=== PATIENT | female | born 1945 | race Caucasian/White ===

== ENCOUNTER 2017-06-29 16:10 | Observation (INO) ==
--- NOTE | 2017-06-29 16:32 | Emergency Department Note ---
Disposition Clinical Impression: Stroke Qualifiers: CVA mechanism: unspecified Qualified Code(s): I63.9 - Cerebral infarction, unspecified Diabetes Qualifiers: Diabetes mellitus type: type 2 Diabetes mellitus bed bug exterminator insulin use: without bed bug exterminator use Diabetes mellitus complication status: with hyperglycemia Qualified Code(s): E11.65 - Type 2 diabetes mellitus with hyperglycemia Disposition: Admitted As Inpatient Condition: Good General Adult HPI - General Chief complaint: ED Neuro Symptoms/Deficit Stated complaint: Neuro Symptoms - Related Data Home Medications Medication Instructions Recorded Confirmed Cholecalciferol (D-3) [Vitamin D] 1,000 unit PO DAILY 06/29/17 06/29/17 Lisinopril-HCTZ 20-12.5 [Prinzide 0.5 tab PO DAILY 06/29/17 06/29/17 20-12.5] Metoprolol [Lopressor] 25 mg PO BID 06/29/17 06/29/17 glipiZIDE [Glipizide] 10 mg PO DAILY 06/29/17 06/29/17 Previous Rx's Medication Instructions Recorded Atorvastatin [Lipitor] 40 mg PO HS #30 tablet 06/30/17 Clopidogrel Bisulfate [Plavix] 75 mg PO DAILY #30 tablet 06/30/17 Allergies Allergy/AdvReac Type Severity Reaction Status Date / Time No Known Allergies Allergy Verified 06/29/17 16:46 Course Vital Signs Temperature 98.4 F 06/29/17 16:32 Pulse Rate 75 06/29/17 16:32 Respiratory Rate 15 06/29/17 16:32 Blood Pressure 144/94 06/29/17 16:32 O2 Sat by Pulse Oximetry 98 06/29/17 16:32 Temperature 97.9 F 06/30/17 15:00 Pulse Rate 76 06/30/17 15:25 Respiratory Rate 16 06/30/17 15:25 Blood Pressure 139/76 06/30/17 15:25 O2 Sat by Pulse Oximetry 94 06/30/17 15:00 Oxygen Delivery Oxygen Delivery Room Air Medical Decision Making - Lab Data Result diagrams: 06/29/17 16:25 06/29/17 16:25 Lab Results 06/29/17 06/29/17 Range/Units 16:25 16:25 WBC 7.4 (4.3-11.1) K/mcL RBC 4.65 (3.82-4.97) M/mcL Hgb 13.9 (11.5-15.4) g/dL Hct 41.3 (35.3-44.9) % MCV 88.8 (83.0-100.0) fL MCH 29.9 (28.0-33.3) pg MCHC 33.7 (31.6-35.5) g/dL RDW 12.9 (11.5-14.5) % Plt Count 255 (140-400) K/mcL MPV 10.6 (9.4-12.4) fL Immature Gran % 0.3 (0-4) % Seg Neutrophils % 57.6 % Lymphocytes % 30.1 % Monocytes % 7.3 % Eosinophils % 3.8 % Basophils % 0.9 % Neutrophils # 4.3 (1.6-8.9) K/mcL Lymphocytes # 2.2 (0.6-4.6) K/mcL Monocytes # 0.5 (0.0-1.3) K/mcL Eosinophils # 0.3 (0.0-0.6) K/mcL Basophils # 0.1 (0.0-0.2) K/mcL Sodium 134 L (136-145) mEq/L Potassium 4.0 (3.5-5.1) mEq/L Chloride 97 L (98-107) mEq/L Carbon Dioxide 28 (23-29) mEq/L BUN 17 (8-23) mg/dL Creatinine 0.80 (0.60-1.20) mg/dL Est GFR ( Amer) > 60 (> 60) Est GFR (Non-Af Amer) > 60 (> 60) BUN/Creatinine Ratio 21 (6-26) Glucose 290 H (70-105) mg/dL Calculated Osmolality 290 (280-300) Calcium 9.4 (8.6-10.3) mg/dL Troponin I < 0.03 (< 0.04) ng/mL Attestation Statement - Attestation Attestation: I examined this patient and my medical decision-making was reviewed with the MACHINE CLOTH EXAMINER/PA/Advanced Practice Nurse/Resident Physician. I agree with the documented findings, disposition and treatment plan as described except to the extent set forth below. I did see the patient immediately upon arrival to her room and also spoke with the daughter and the patient was fine this morning when she got home at noon started to have symptoms and difficult time expressing herself which continued to worsen and also worsened when she was having lunch with her friend. She did drive to the lunch. She did see her primary care physician who found a irregular heart rate and sent her to the emergency department. She is not a thrombolytic candidate based on prolonged duration of symptoms, she denies any numbness or weakness of extremities, facial droop or confusion. She does not have specific slurred speech but has difficult time finding words and speaking and this is confirmed by the daughter. No history of strokes. Social history: Non smoker 1631 I did review the records from Dr. tamayo that were sent over with the patient as well as the EKG which does show a sinus rhythm and not atrial fibrillation. Patient's symptoms most consistent with stroke and will be admitted to the hospital. CT scan is pending. [address] reviewed. Pt to b admitted. I did review the EKG showing normal sinus rhythm with rate of 75 without acute ischemic change. There is one PVC. 174
[2017-06-29 16:57] LABS: Basophils # 0.1 K/mcL (0.0-0.2); Basophils % 0.9 %; Eosinophils # 0.3 K/mcL (0.0-0.6); Eosinophils % 3.8 %; Hematocrit 41.3 % (35.3-44.9); Hemoglobin 13.9 g/dL (11.5-15.4); Immature Granulocytes % 0.3 % (0-4); Lymphocytes # 2.2 K/mcL (0.6-4.6); Lymphocytes % 30.1 %; Mean Corpuscular HGB Conc 33.7 g/dL (31.6-35.5); Mean Corpuscular Hemoglobin 29.9 pg (28.0-33.3); Mean Corpuscular Volume 88.8 fL (83.0-100.0); Mean Platelet Volume 10.6 fL (9.4-12.4); Monocytes # 0.5 K/mcL (0.0-1.3); Monocytes % 7.3 %; Neutrophils # 4.3 K/mcL (1.6-8.9); Platelet Count 255 K/mcL (140-400); Red Blood Count 4.65 M/mcL (3.82-4.97); Red Cell Distribution Width 12.9 % (11.5-14.5); Segmented Neutrophils % 57.6 %
[2017-06-29 17:17] LABS: Troponin I < 0.03 ng/mL (< 0.04)
[2017-06-29 17:19] LABS: BUN/Creatinine Ratio 21 (6-26); Blood Urea Nitrogen 17 mg/dL (8-23); Calcium 9.4 mg/dL (8.6-10.3); Carbon Dioxide 28 mEq/L (23-29); Chloride 97 mEq/L (98-107); Glucose 290 mg/dL (70-105); Osmolality,Calculated 290 (280-300); Sodium 134 mEq/L (136-145); eGFR For African Americans > 60 (> 60); eGFR For Non-African Americans > 60 (> 60)
--- NOTE | 2017-06-29 17:27 | Emergency Department Note ---
Disposition Clinical Impression: Stroke Qualifiers: CVA mechanism: unspecified Qualified Code(s): I63.9 - Cerebral infarction, unspecified Diabetes Qualifiers: Diabetes mellitus type: type 2 Diabetes mellitus manager terminal insulin use: without manager terminal use Diabetes mellitus complication status: with unspecified complications Qualified Code(s): E11.8 - Type 2 diabetes mellitus with unspecified complications Disposition: Admitted As Inpatient Condition: Fair Time of Disposition: 18:21 General Adult HPI - General Chief complaint: ED Altered Mental Status Stated complaint: Neuro Symptoms Time Seen by Provider: 06/29/17 17:24 Source: patient, family Mode of arrival: ambulatory Limitations: no limitations Nursing Notes Reviewed: Yes Vital Signs Reviewed: Yes - History of Present Illness HPI Narrative: Patient is a 71-year-old female with a past medical history of hypertension, diabetes, high cholesterol and history of smoking presents to the emergency department for the complaint of difficulty with articulating words. The patient states that her symptoms started at noon today approximately 5-1/2 hours ago. She states that she was helping a friend to the doctor's office when she was having difficulty with saying her thoughts. She states that she is unable to articulate with speech or come up with the words to explain what she was thinking at that time. Shortly afterwards the patient came to the emergency department. She denies any headache, vision changes, hearing changes , focal neurological deficits such as weaknesses, loss of sensation or any other associated symptoms. She states that her symptoms have improved since then however she still has a mild difficulty with articulating what she is trying to say. Pain Scale: 0 - Related Data Home Medications Medication Instructions Recorded Confirmed Aspirin Enteric Coated [Aspirin EC] 81 mg PO DAILY 06/29/17 06/29/17 Cholecalciferol (D-3) [Vitamin D] 1,000 unit PO DAILY 06/29/17 06/29/17 Lisinopril-HCTZ 20-12.5 [Prinzide 0.5 tab PO DAILY 06/29/17 06/29/17 20-12.5] Meloxicam [Mobic] 15 mg PO DAILY PRN 06/29/17 06/29/17 Metoprolol [Lopressor] 25 mg PO BID 06/29/17 06/29/17 Pioglitazone HCl [Actos] 30 mg PO DAILY 06/29/17 06/29/17 glipiZIDE [Glipizide] 10 mg PO DAILY 06/29/17 06/29/17 Allergies Allergy/AdvReac Type Severity Reaction Status Date / Time No Known Allergies Allergy Verified 06/29/17 16:46 All systems ED: reviewed and negative except as stated. Review of Systems: As Per HPI Constitutional: Denies: fever, chills ENT ED: Denies: congestion Cardiovascular: Denies: chest pain, palpitations Respiratory: Denies: cough, dyspnea, wheezes Gastrointestinal: Denies: abdominal pain, nausea, vomiting Genitourinary: Denies: urgency, dysuria Musculoskeletal: Denies: back pain, neck pain Neurological: Reports: other (difficulty articulating thoughts. Denies facial droop or slurring of words. ). Denies: headache, weakness, numbness, paresthesias, confusion, abnormal gait, vertigo Past Medical History - Past Medical History Attestation: Yes The following information was validated with the patient. Medical history: Reports: arthritis, cancer, diabetes, hypertension Psychiatric history: Reports: no psych history - Social History Smoking Status: Never smoker Smokeless Tobacco Status: No Alcohol use: Reports: none Drug use: Reports: none Physical Exam CONSTITUTIONAL: Alert and oriented X3, well-nourished, well appearing, in no apparent distress. On exam the patient at times has difficulty providing a history and has to slow down and has increased thinking about the words that she needs to use. HEAD: Normocephalic; atraumatic. EYES: PERRL, no scleral icterus. NOSE: The nose is normal in appearance without rhinorrhea RESP: Normal chest excursion with respiration; breath sounds clear and equal bilaterally; no wheezes, rhonchi, or rales CARD: Regular rhythm, without murmurs, rub or gallop ABD: Non-distended; non-tender, soft,without rigidity, rebound or guarding SKIN: Normal for age and race; warm and dry; no apparent lesions NEUROLOGICAL: Patient is alert and oriented times three. Cranial nerves III- XII are intact. Sensory and motor functions are intact. Strength is 5/5 for flexion and extension in all 4 extremities. Patellar DTRS are equal and intact. Finger to nose testing is equal and normal bilaterally. - General General appearance: alert Course Course Narrative: Patient has an NIH SS score of 1. Plan at this time is to order basic lab work as well as a head CT the patient will be admitted most likely for TIA given her presentation. On admitting the patient will undergo further workup and evaluation of her symptoms. Patient is not a tPA candidate at this time given the duration of her symptoms as well as the low acuity of her stroke scale score and continuing improvement. - Reevaluation(s) Reevaluation #1: The patient continues to remain stable at this time. Her lab work was unremarkable except for an elevated blood glucose in 230's. The patient's head CT showed no acute intracranial abnormality. The patient's symptoms appear to be improving back to her baseline. I discussed with the patient the plan to admit her to the hospital for further workup of a possible stroke/TIA. The patient agrees with this plan. I discussed the patient's case with hospitalist on-call Dr. Shah and she agrees to accept the patient. Time: 18:21 Vital Signs Temperature 98.4 F 06/29/17 16:32 Pulse Rate 75 06/29/17 16:32 Respiratory Rate 15 06/29/17 16:32 Blood Pressure 144/94 06/29/17 16:32 O2 Sat by Pulse Oximetry 98 06/29/17 16:32 Temperature 98.4 F 06/29/17 17:05 Pulse Rate 74 06/29/17 20:57 Respiratory Rate 16 06/29/17 20:57 Blood Pressure 115/89 06/29/17 20:57 O2 Sat by Pulse Oximetry 97 06/29/17 20:57 Oxygen Delivery Oxygen Delivery Room Air Medical Decision Making - Medical Records Medical records reviewed: Yes I reviewed the patient's medical records. - Lab Data Lab results reviewed: Yes I reviewed the patient's lab results. Result diagrams: 06/29/17 16:25 06/29/17 16:25 Lab Results 06/29/17 06/29/17 Range/Units 16:25 16:25 WBC 7.4 (4.3-11.1) K/mcL RBC 4.65 (3.82-4.97) M/mcL Hgb 13.9 (11.5-15.4) g/dL Hct 41.3 (35.3-44.9) % MCV 88.8 (83.0-100.0) fL MCH 29.9 (28.0-33.3) pg MCHC 33.7 (31.6-35.5) g/dL RDW 12.9 (11.5-14.5) % Plt Count 255 (140-400) K/mcL MPV 10.6 (9.4-12.4) fL Immature Gran % 0.3 (0-4) % Seg Neutrophils % 57.6 % Lymphocytes % 30.1 % Monocytes % 7.3 % Eosinophils % 3.8 % Basophils % 0.9 % Neutrophils # 4.3 (1.6-8.9) K/mcL Lymphocytes # 2.2 (0.6-4.6) K/mcL Monocytes # 0.5 (0.0-1.3) K/mcL Eosinophils # 0.3 (0.0-0.6) K/mcL Basophils # 0.1 (0.0-0.2) K/mcL Sodium 134 L (136-145) mEq/L Potassium 4.0 (3.5-5.1) mEq/L Chloride 97 L (98-107) mEq/L Carbon Dioxide 28 (23-29) mEq/L BUN 17 (8-23) mg/dL Creatinine 0.80 (0.60-1.20) mg/dL Est GFR ( Amer) > 60 (> 60) Est GFR (Non-Af Amer) > 60 (> 60) BUN/Creatinine Ratio 21 (6-26) Glucose 290 H (70-105) mg/dL Calculated Osmolality 290 (280-300) Calcium 9.4 (8.6-10.3) mg/dL Troponin I < 0.03 (< 0.04) ng/mL - Radiology Data Radiology results reviewed: Yes I reviewed the patient's radiology results. Head CT 06/29/17 16:32 IMPRESSION: No acute intracranial abnormality. Moderate periventricular and subcortical white matter low attenuation likely represents sequela of chronic small vessel ischemic disease. D/ / 06/29/2017 17:20:04 Barry Wells MD / [facility] Interpreting Provider: Barry Wells MD - EKG Data EKG #1 EKG attestation: Yes I reviewed and interpreted this EKG. EKG results narrative: EKG done at 16:54 shows sinus rhythm at a rate of 75 bpm. Normal axis. [place] is 198, QRS is 70, QT is 360 and QTc is 397 and these are within normal limits. No signs of ST elevation, ST depression or Q waves present at this time. No signs of ischemia and I have no old EKG for comparison. NIH Stroke Scale - Level of Consciousness LOC: Alert - LOC Questions LOC Questions: Answers both correctly - LOC Commands LOC Commands: Performs both correctly - Best Gaze Best Gaze: Normal - Visual Visual: No visual loss - Facial Palsy Facial Palsy: Normal - Motor Arms Motor Arm-Left: No drift for 10 seconds Motor Arm-Right: No drift for 10 seconds - Motor Legs Motor Leg-Left: No drift for 5 seconds Motor Leg-Right: No drift for 5 seconds - Limb Ataxia Limb Ataxia: Normal, No Ataxia - Sensory Sensory: Normal - Best Language Best Language: Mild to moderate aphasia. Examiner can identify picture from response - Dysarthria Dysarthria: Normal - Extinction and Inattention Extinction and Inattention: Normal - NIHSS Total Score NIHSS Total Score: 1
[2017-06-29] MEDS ORDERED: Naloxone 0.4 MG/ML INJ IVP PRN (19:25)
[2017-06-29] MEDS ORDERED: *HR* HYDROcodone/Acet 5/325 mg TABLET PO PRN (19:26)
[2017-06-29] MEDS ORDERED: *HR* Promethazine 25 MG/ML VIAL IVP PRN (19:26)
[2017-06-29] MEDS ORDERED: Acetaminophen 325 MG TABLET PO PRN (19:26)
[2017-06-29] MEDS ORDERED: Ondansetron 4 MG/2 ML VIAL IVP PRN (19:26)
--- NOTE | 2017-06-29 21:24 | Internal Med History&Physical ---
Date of Encounter: 06/29/17 Time of Encounter: 20:00 Internal Medicine - H&P: HPI Chief complaint: Slurred speech and dysarthria Admitted From: Emergency Dept Plans for Post Hospital Care: Home History of present illness: Ms. Arias is a 71 year old female with a past medical history of hypertension , diabetes, high cholesterol and history of smoking presented to the emergency department for the complaint of difficulty with articulating words and slurred speech. The patient states that her symptoms started at noon today. She states that she is unable to articulate with speech or come up with the words to explain what she was thinking at that time. Also noticed some slurred speech. She denies any headache, vision changes, hearing changes, focal neurological deficits such as weaknesses, loss of sensation or any other associated symptoms. She states that her symptoms have improved by the time she presented to ER. She denied any speech problems now. Past Med Surg Social Fam HX - Past Medical History Medical history: arthritis, cancer, diabetes, hypertension Psychiatric history: no psych history - Past Surgical History Surgical History: no surgical history - Social History Smoking Status: Never smoker Smokeless Tobacco Status: No Alcohol use: none Drug use: none - Additional Family History Additional family history: Family hsitory reviewed and non contribuitory to current problem. Internal Medicine - H&P: Meds Aspirin Enteric Coated [Aspirin EC] 81 mg PO DAILY 06/29/17 [History] Cholecalciferol (D-3) [Vitamin D] 1,000 unit PO DAILY 06/29/17 [History] Lisinopril-HCTZ 20-12.5 [Prinzide 20-12.5] 0.5 tab PO DAILY 06/29/17 [History] Meloxicam [Mobic] 15 mg PO DAILY PRN 06/29/17 [History] Metoprolol [Lopressor] 25 mg PO BID 06/29/17 [History] Pioglitazone HCl [Actos] 30 mg PO DAILY 06/29/17 [History] glipiZIDE [Glipizide] 10 mg PO DAILY 06/29/17 [History] 3 Allergy/AdvReac Type Severity Reaction Status Date / Time No Known Allergies Allergy Verified 06/29/17 16:46 All Systems PM: A 10-system review of systems was performed and is negative for pertinent findings except as documented above in the HPI. Review of systems: All the systems are reviewed everything is benign except the systems and symptoms I mentioned in the history of present illness - Constitutional Vitals: Temp Pulse Resp BP Pulse Ox 98.4 F 74 16 115/89 97 06/29/17 17:05 06/29/17 20:57 06/29/17 20:57 06/29/17 20:57 06/29/17 20:57 General appearance: Present: cooperative, A&O X 3, no acute distress, answers questions appropriately - Head Head exam: Present: atraumatic, normal inspection - Respiratory Respiratory exam: Present: decreased breath sounds. Absent: rales, respiratory distress, rhonchi, wheezes - Cardiovascular Cardiovascular exam: Present: RRR, +S1, +S2. Absent: tachycardia - GI/Abdominal GI/Abdominal exam: Present: normal bowel sounds, soft. Absent: rebound, rigid, tenderness - Extremities Exam Extremities exam: Absent: calf tenderness, pedal edema, tenderness - Back Exam Back exam: Absent: CVA tenderness (L), CVA tenderness (R) - Neurological Exam Neurological exam: Present: alert, CN II-XII intact, oriented X3, no focal deficits, strengths equal and symetr throughout. Absent: pronater drift, facial droop, speech deficit - Psychiatric Psychiatric exam: Present: normal affect, normal mood - Skin Skin exam: Absent: rash Internal Med - H&P Results - Labs CBC & Chem 7: 06/29/17 16:25 06/29/17 16:25 - Assessment and plan (1) Dysarthria Current Visit: Yes Status: Acute Assessment and plan: Place the pt into Tele for observation Reviewed CT of head - no acute ICH / No acute intra cranial pathology noticed cont on court monitor EKG - showed NSR Will check FLP in AM check MRI of brain, 2 D Echo and Carotid doppler in AM not a candidate for tPA since symptoms improved does look more like TIA neuro checks Q4hr Cont ASA 81 mg for now check FLP In AM (2) TIA (transient ischemic attack) Current Visit: Yes Status: Acute Qualifiers: Qualified Code(s): G45.9 - Transient cerebral ischemic attack, unspecified (3) HTN (hypertension) Current Visit: Yes Status: Acute Assessment and plan: stable with current meds resumed home meds Qualifiers: Hypertension type: essential hypertension Qualified Code(s): I10 - Essential (primary) hypertension (4) HLD (hyperlipidemia) Current Visit: Yes Status: Acute Assessment and plan: check FLP in AM Qualifiers: Hyperlipidemia type: unspecified Qualified Code(s): E78.5 - Hyperlipidemia , unspecified (5) Diabetes Current Visit: Yes Status: Acute Assessment and plan: Held PO meds for now check HbA1C in AM placed her on ISS at low Qualifiers: Diabetes mellitus type: type 2 Diabetes mellitus senior living insulin use: without director call center sales use Diabetes mellitus complication status: with unspecified complications Qualified Code(s): E11.8 - Type 2 diabetes mellitus with unspecified complications - Time Spent With Patient Total time spent is greater than 50% in coordination of care (as documented) at patient's floor/unit and/or counseling patient:
[2017-06-29] MEDS ORDERED: Dextrose Gel 15 GM/37.5 ML TUBE PO PRN ×2 (21:56)
[2017-06-29] MEDS ORDERED: *HR* Dextrose 50 % in Water (Syg) 50 ML SYRINGE IVP PRN (21:56)
[2017-06-29] MEDS ORDERED: D5% in Water 1,000 ML IVC PRN (21:56)
[2017-06-30 06:31] LABS: Chol/HDL Ratio 8.3 (0-4.9); Cholesterol 289 mg/dL (< 200); HDL Cholesterol 35 mg/dL (40-59); Triglycerides 433 mg/dL (< 150)
[2017-06-30 08:35] LABS: Estimated Average Glucose 223 mg/dl; Hemoglobin A1C 9.4 %
[2017-06-30] MEDS: Insulin LISPRO 300 UNITS/3 ML VIAL SQ SCH ×3 (08:56→16:18)
[2017-06-30] MEDS ORDERED: Lisinopril-HCTZ 20-12.5mg TABLET PO SCH (09:00)
[2017-06-30] MEDS ORDERED: Cholecalciferol (D-3) 1,000 UNIT TABLET PO SCH (09:00)
[2017-06-30] MEDS ORDERED: Aspirin Enteric Coated 81 MG Tablet PO SCH (09:00)
[2017-06-30] MEDS ORDERED: *HR* Heparin 5,000 UNIT/ML VIAL SQ SCH (10:00)
--- NOTE | 2017-06-30 14:31 | Neurology - Consult Note ---
Date of Encounter: 06/30/17 Time of Encounter: 14:25 Assessment and Plan (1) TIA (transient ischemic attack) Current Visit: Yes Status: Acute I agree that this patient is likely experienced an episode of transient cerebral ischemia. She certainly has stroke risk factors including hyperlipidemia, she is treated for hypertension, and has poorly controlled diabetes. Her age is also a risk factor at this juncture. However she is resolved back to her normal baseline. Echocardiogram did not reveal a cardioembolic source. However she has very severe chronic deep white matter changes on her MRI. Perhaps this was a small vessel event. I would therefore simply recommend discontinuing aspirin and starting on Plavix 75 mg daily indefinitely. Certainly aggressive management of her stroke risk factors is paramount. This includes aggressive management of her diabetes, and restarting her on statin therapy. Her blood pressure seems to be well controlled. At this point I do not feel she needs any additional therapeutics. Carotid duplex Doppler study revealed nonstenotic plaquing. In the event that she has an intracranial stenosis of the treatment would still be the same. At this point I do not feel that the CTA of the head and neck will be of any benefit. I may discharge her at your discretion. I will reevaluate her at your request. Qualifiers: Qualified Code(s): G45.9 - Transient cerebral ischemic attack, unspecified History of Present Illness HPI: Ms. Arias is a 71 year old female is being seen for neurologic consultation secondary to an apparent episode of transient ischemia. She states that on the day of admission apparently she had a normal day early on. She mentions that she is going to work for a few hours and left with a friend and went to [place] for lunch. During lunch she began noticing difficulty with verbal expression. Apparently her friend however did not notice. Then she was not able to say anything and she was writing things down on paper she apparently written messages down forward friend to call her daughter. From that they were taken to [facility] with Dr. tamayo was notified. He instructed her to be transferred to [facility] for further assessment. Apparently the speech difficulty lasted for at least 2 or 3 hours. She denied headache denies numbness tingling or weakness of the face arms or legs denied any visual changes. She has a known history of diabetes and is treated for hypertension and hyperlipidemia. For some reason she was taken off her statin therapy. Currently she is alert and oriented and back to her normal neurologic baseline. She is progressing for discharge. MRI scan of the brain revealed severe scattered deep white matter changes symmetrically. Diffusion imaging however showed no evidence of an acute cerebral infarct. Echocardiogram was negative for evidence of an embolic source. She has not had CTA of the neck or head. She currently takes aspirin 81 mg daily. Vital signs since admission have been fairly stable. Her glucose today is to 290, triglycerides are elevated at 433, cholesterol elevated at 289. CBC with differential was normal. Hemoglobin A1c is elevated at 9.4. She admits having difficulty with controlling her diabetes. Past Med Surg Social Fam HX - Past Medical History Medical history: arthritis, cancer, diabetes, hypertension Psychiatric history: no psych history - Past Surgical History Surgical History: no surgical history - Social History Smoking Status: Never smoker Smokeless Tobacco Status: No Alcohol use: none Drug use: none - Family History Father History Unknown: Yes Name: Todd Glover Age: 60 Living Status: Hx Family Cardiac Disorders: Yes Mother History Unknown: Yes Age: 83 Living Status: Hx Family Cardiac Disorders: Yes Medications and Allergies Aspirin Enteric Coated [Aspirin EC] 81 mg PO DAILY 06/29/17 [History] Cholecalciferol (D-3) [Vitamin D] 1,000 unit PO DAILY 06/29/17 [History] Lisinopril-HCTZ 20-12.5 [Prinzide 20-12.5] 0.5 tab PO DAILY 06/29/17 [History] Meloxicam [Mobic] 15 mg PO DAILY PRN 06/29/17 [History] Metoprolol [Lopressor] 25 mg PO BID 06/29/17 [History] Pioglitazone HCl [Actos] 30 mg PO DAILY 06/29/17 [History] glipiZIDE [Glipizide] 10 mg PO DAILY 06/29/17 [History] 3 Allergy/AdvReac Type Severity Reaction Status Date / Time No Known Allergies Allergy Verified 06/29/17 16:46 All Systems: The remainder of the systems were reviewed and are negative Review of Systems: 10 point review of systems is consistent with a history of present illness and otherwise negative. Physical Examination - Vital Signs Vital Signs: Initial Vital Signs Temp Pulse Resp BP Pulse Ox 98.4 F 75 15 144/94 98 06/29/17 16:32 06/29/17 16:32 06/29/17 16:32 06/29/17 16:32 06/29/17 16:32 - Neurologic Detailed motor examination: full strength in all major muscle groups Motor examination - right side: 07/30: deltoids, biceps, triceps, wrist flexion, wrist extension, hand sign writer, hip flexors, tibialis Anterior, quadriceps, toe extension (EHL), plantarflexion Motor examination - left side: 07/30: deltoids, biceps, triceps, wrist flexion, wrist extension, hip flexors, hand sign writer, quadriceps, tibialis Anterior, toe extension (EHL), plantarflexion Mental Status Examination: awake, alert, oriented to person, oriented to place, oriented to time, follows commands appropriately, answers questions appropriately, no agnosia, no aphasia, no aproxia Cranial nerve examination: PERRL, EOMI, visual avitia intact, corneal reflexes brisk symmetrically, sensory to face intact, mastication intact, no facial asymmetry is present, no dysarthria, hearing is intact symmetrically, soft palate elevates bilaterally upon phonation, gag reflex intact, flexes SCM and trapezius muscles symmetrically with full power, tongue protrudes midline, no atrophy or facial fasiculations present Cerebellar examination: no dysmetria, performs finger to nose and heel to alberto symmetrically without ataxia, no gait ataxia, no truncal ataxia, no difficulty with rapid alternating movements Results - Laboratory Findings CBC and BMP: 06/29/17 16:25 06/29/17 16:25 Abnormal lab findings: Abnormal lab results Sodium 134 mEq/L (136-145) L 06/29/17 16:25 Chloride 97 mEq/L (98-107) L 06/29/17 16:25 Glucose 290 mg/dL (70-105) H 06/29/17 16:25 POC Glucose 117 mg/dL (70-99) H 06/30/17 11:50 Hemoglobin A1c 9.4 % (-5.6) H 06/29/17 21:56 Triglycerides 433 mg/dL (< 150) H 06/30/17 05:31 Cholesterol 289 mg/dL (< 200) H 06/30/17 05:31 HDL Cholesterol 35 mg/dL (40-59) L 06/30/17 05:31 Cholesterol/HDL Ratio 8.3 (0-4.9) H 06/30/17 05:31 Consult Discharge Plan - Plan Referrals: Dominic Tamayo DO [Primary Care Provider] -
[2017-06-30 15:24] VITALS: BP 139/76
--- NOTE | 2017-06-30 16:55 | Discharge Summary ---
<Stuart Francois - Last Filed: 06/30/17 16:54> Date of Encounter: 06/30/17 Hospital course: Ms. Arias is a 71 year old female - Time Spent with Patient Total time spent providing and/or coordinating discharge services: - Discharge Medications Prescriptions: Atorvastatin [Lipitor] 40 mg PO HS #30 tablet Clopidogrel Bisulfate [Plavix] 75 mg PO DAILY #30 tablet Home Medications: Cholecalciferol (D-3) [Vitamin D] 1,000 unit PO DAILY 06/29/17 [History] Lisinopril-HCTZ 20-12.5 [Prinzide 20-12.5] 0.5 tab PO DAILY 06/29/17 [History] Metoprolol [Lopressor] 25 mg PO BID 06/29/17 [History] glipiZIDE [Glipizide] 10 mg PO DAILY 06/29/17 [History] Atorvastatin [Lipitor] 40 mg PO HS #30 tablet 06/30/17 [Rx] Clopidogrel Bisulfate [Plavix] 75 mg PO DAILY #30 tablet 06/30/17 [Rx] Allergies/Adverse Reactions: 3 Allergy/AdvReac Type Severity Reaction Status Date / Time No Known Allergies Allergy Verified 06/29/17 16:46 Date of admission: 06/29/17 20:43 Primary care physician: Dominic Nguyen, Consults: 06/29/17 22:56 Consult to Pastoral Services [CONS] Routine Comment: 06/30/17 09:27 Consult to Neurology [CONS] Routine Consulting Provider: [facility] Reason for Consult: TIA. Brain MRI negative. On aspirin at home. Appreciate neurology recommendation. Call Completed: Yes 06/30/17 16:41 Consult to [facility] [CONS] Routine Reason for SW Consult: No prescription/drug coverage. Patient will need new rx for Plavix and Lipitor at discharge. 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 Restarted on statin. Coupons given (goodrx) for meds. Sugars not controlled. Actos stopped due to interaction with Plavix. I did not make any changes (or start insulin) as she needs follow up in office. Date of Encounter: 06/30/17 Time of Encounter: 17:00 - Discharge Diagnosis (1) TIA (transient ischemic attack) Priority: Primary Status: Acute Qualifiers: Transient cerebral ischemia type: carotid artery syndrome (hemispheric) Qualified Code(s): G45.1 - Carotid artery syndrome (hemispheric) (2) Diabetes Priority: Secondary Status: Chronic Qualifiers: Diabetes mellitus type: type 2 Diabetes mellitus senior care insulin use: without senior care use Diabetes mellitus complication status: with hyperglycemia Qualified Code(s): E11.65 - Type 2 diabetes mellitus with hyperglycemia (3) HTN (hypertension) Priority: Secondary Status: Chronic Qualifiers: Hypertension type: essential hypertension Qualified Code(s): I10 - Essential (primary) hypertension (4) HLD (hyperlipidemia) Priority: Secondary Status: Chronic Qualifiers: Hyperlipidemia type: mixed hyperlipidemia Qualified Code(s): E78.2 - Mixed hyperlipidemia Hospital course: Ms. Arias is a 71 year old female with history of DM and HTN presented to ED with difficulty with speech and slurred speech. She had no other neurologic symptoms at the time. Ms Arias was placed in observation for acute neurologic event. Symptoms completely resolved. She had MRI negative for stroke. Echo and carotid doppler negative for acute issue. Lipids abnormal. She was evaluated by neurology and ASA changed to Plavix. At this time she has no symptoms. She is ready to be discharged home. Daughter at bedside. Questions answered. - Time Spent with Patient Total time spent providing and/or coordinating discharge services: Date of admission: 06/29/17 20:43 Primary care physician: Dominic Nguyen, Consults: 06/29/17 22:56 Consult to Pastoral Services [CONS] Routine Comment: 06/30/17 09:27 Consult to Neurology [CONS] Routine Consulting Provider: [facility] Reason for Consult: TIA. Brain MRI negative. On aspirin at home. Appreciate neurology recommendation. Call Completed: Yes 06/30/17 16:41 Consult to [facility] [CONS] Routine Reason for SW Consult: No prescription/drug coverage. Patient will need new rx for Plavix and Lipitor at discharge. Discharging clinician: Phan Moses Anticipated date of discharge: 06/30/17 - Constitutional Vitals: Temp Pulse Resp BP Pulse Ox 97.9 F 76 16 139/76 94 06/30/17 15:00 06/30/17 15:25 06/30/17 15:25 06/30/17 15:25 06/30/17 15:00 - Head Head exam: Present: normocephalic - Eye Eye exam: Present: conjuntiva pink - ENT ENT exam: Present: mucous membranes moist - Respiratory Respiratory exam: Present: CTAB. Absent: rales, rhonchi, wheezes - Cardiovascular Cardiovascular exam: Present: RRR. Absent: systolic murmur, tachycardia - GI/Abdominal GI/Abdominal exam: Present: soft. Absent: tenderness - Extremities Exam Extremities exam: Present: warm. Absent: tenderness - Neurological Exam Neurological exam: Present: alert, oriented X3, no focal deficits - Skin Skin exam: Present: dry, warm - Patient Status Functional capacity at discharge: independent ambulation Overall status at discharge: patient is progressing back to baseline - Diet and Activity Activity: increase activity as tolerated Diet: diabetic diet, low fat, low cholesterol
[2017-06-30] MEDS ORDERED: Insulin LISPRO 300 UNITS/3 ML VIAL SQ SCH (21:00)
--- NOTE | 2017-07-02 13:38 | Electrocardiograph Report ---
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
== END 2017-06-30 18:38 | disposition home or self-care (01) ==
LOC: 2NENU 16:10 → EMEROO 16:10 → 2NENU 21:11
PROVIDERS: ADMIT Family Medicine; ATTEND Internal Medicine

== ENCOUNTER 2019-04-10 17:17 | Observation (INO) ==
[2019-04-10 18:05] LABS: Hematocrit 38.5 % (35.3-44.9); Hemoglobin 13.5 g/dL (11.5-15.4); Mean Corpuscular HGB Conc 35.1 g/dL (31.6-35.5); Mean Corpuscular Hemoglobin 30.5 pg (28.0-33.3); Mean Corpuscular Volume 86.9 fL (83.0-100.0); Mean Platelet Volume 9.9 fL (9.4-12.4); Platelet Count 284 K/mcL (140-400); Red Blood Count 4.43 M/mcL (3.82-4.97); Red Cell Distribution Width 12.3 % (11.5-14.5)
[2019-04-10 18:14] LABS: Prothrombin Time 11.2 Seconds (9.4-12.1)
[2019-04-10 18:15] LABS: Bilirubin,Urine Negative (Negative); Blood,Urine Negative (Negative); Clarity,Urine Cloudy (Clear); Color,Urine Yellow (Yellow); Glucose,Urine (UA) 250 mg/dL (Normal); Ketones,Urine Negative (Negative); Leukocyte Esterase,Urine Moderate (Negative); Nitrite,Urine Positive (Negative); Protein,Urine Negative (Neg-Trace); Specific Gravity,Urine 1.024 (1.010-1.025); Urobilinogen,Urine Normal (Normal)
[2019-04-10 18:16] LABS: Bacteria,Urine Many per hpf (None-Few); Hyaline Casts,Urine Few per lpf (None-Few); RBC,Urine 0-3 per hpf (0-3); Squamous Epithelial Cell,Urine Many per lpf (None-Few); WBC,Urine 50-100 per hpf (0-3)
[2019-04-10 18:17] LABS: Activated Partial Thrombo Time 31.3 Seconds (26.0-36.0)
[2019-04-10 18:27] LABS: BUN/Creatinine Ratio 26 (6-26); Blood Urea Nitrogen 19 mg/dL (8-23); Calcium 9.8 mg/dL (8.6-10.3); Carbon Dioxide 27 mEq/L (23-29); Chloride 97 mEq/L (98-107); Ethanol < 10 mg/dL (Less than 10); Glucose 285 mg/dL (70-105); Osmolality,Calculated 293 (280-300); Sodium 135 mEq/L (136-145); Troponin I < 0.03 ng/mL (< 0.04); eGFR For African Americans > 60 (> 60); eGFR For Non-African Americans > 60 (> 60)
[2019-04-10] MEDS ORDERED: cefTRIAXone 1,000 MG in Water for inj. (sterile) 10 ML IVP ONE (19:16)
[2019-04-10] MEDS ORDERED: Isovue-370 500 ML BOTTLE IVP ONE (19:22)
[2019-04-10] MEDS ORDERED: *HR* Dextrose 50 % in Water (Syg) 50 ML SYRINGE IVP PRN (21:44)
[2019-04-10] MEDS ORDERED: D5% in Water 1,000 ML IVC PRN (21:44)
[2019-04-10] MEDS ORDERED: Dextrose Gel 15 GM/37.5 ML TUBE PO PRN ×2 (21:44)
[2019-04-10] MEDS: Insulin DETEMIR 100 UNIT/ML X5UNITS SQ SCH (23:14)
[2019-04-10] MEDS: Insulin LISPRO 300 UNITS/3 ML VIAL SQ SCH (23:14)
[2019-04-11 02:59] LABS: Prothrombin Time 11.8 Seconds (9.4-12.1)
[2019-04-11 03:17] LABS: Alanine Aminotransferase 8 Units/L (7-52); Albumin 3.5 g/dL (3.5-5.7); Albumin/Globulin Ratio 1.6 (1.1-2.2); Alkaline Phosphatase 71 Units/L (34-104); Aspartate Amino Transferase 8 Units/L (13-39); BUN/Creatinine Ratio 23 (6-26); Bilirubin,Total 0.3 mg/dL (0.3-1.0); Blood Urea Nitrogen 17 mg/dL (8-23); Calcium 9.3 mg/dL (8.6-10.3); Carbon Dioxide 27 mEq/L (23-29); Chloride 99 mEq/L (98-107); Chol/HDL Ratio 5.3 (0-4.9); Cholesterol 179 mg/dL (< 200); Globulin 2.2 g/dL (2.4-3.5); Glucose 374 mg/dL (70-105); HDL Cholesterol 34 mg/dL (40-59); LDL Cholesterol,Calculated 77 mg/dL (0-99); Osmolality,Calculated 297 (280-300); Potassium 3.9 mEq/L (3.5-5.1); Sodium 135 mEq/L (136-145); Total Protein 5.7 g/dL (6.4-8.9); Triglycerides 339 mg/dL (< 150); eGFR For African Americans > 60 (> 60); eGFR For Non-African Americans > 60 (> 60)
[2019-04-11 03:51] LABS: Estimated Average Glucose 229 mg/dl
[2019-04-11] MEDS: Lisinopril-HCTZ 20-12.5mg TABLET PO SCH (08:27)
[2019-04-11] MEDS: Insulin LISPRO 300 UNITS/3 ML VIAL SQ SCH ×4 (08:27→22:16)
[2019-04-11] MEDS ORDERED: Perflutren Lipid Microsphere 1.3 ML in 0.9 % Sodium Chloride 8.7 ML IVP ONE (11:27)
[2019-04-11] MEDS: Insulin DETEMIR 100 UNIT/ML X5UNITS SQ SCH (22:19)
[2019-04-12 05:26] LABS: Hematocrit 39.6 % (35.3-44.9); Hemoglobin 13.2 g/dL (11.5-15.4); Mean Corpuscular HGB Conc 33.3 g/dL (31.6-35.5); Mean Platelet Volume 9.9 fL (9.4-12.4); Platelet Count 262 K/mcL (140-400); Red Cell Distribution Width 12.4 % (11.5-14.5); White Blood Count 7.7 K/mcL (4.3-11.1)
[2019-04-12 05:42] LABS: BUN/Creatinine Ratio 17 (6-26); Blood Urea Nitrogen 12 mg/dL (8-23); Calcium 9.6 mg/dL (8.6-10.3); Carbon Dioxide 30 mEq/L (23-29); Chloride 97 mEq/L (98-107); Glucose 323 mg/dL (70-105); Osmolality,Calculated 294 (280-300); Sodium 136 mEq/L (136-145); eGFR For African Americans > 60 (> 60); eGFR For Non-African Americans > 60 (> 60)
[2019-04-12 07:55] VITALS: BP 117/64
[2019-04-12] MEDS: Insulin LISPRO 300 UNITS/3 ML VIAL SQ SCH (08:11)
[2019-04-12] MEDS: Lisinopril-HCTZ 20-12.5mg TABLET PO SCH (08:11)
[2019-04-12] MEDS ORDERED: Cholecalciferol (D-3) 1,000 UNIT (25MCG) TABLET PO SCH (09:00)
== END 2019-04-12 13:25 | disposition home or self-care (01) ==
LOC: 3BNU 17:17 → EMEROOARM 17:17 → 3BNU 20:25
PROVIDERS: ADMIT Student in an Organized Health Care Education/Training Program; ATTEND Student in an Organized Health Care Education/Training Program

== ENCOUNTER 2020-08-06 16:26 | Observation (INO) ==
[2020-08-06] MEDS ORDERED: Isovue-370 500 ML BOTTLE IVP ONE (16:42)
[2020-08-06 16:56] LABS: Hemoglobin 10.2 g/dL (11.5-15.4); Mean Corpuscular HGB Conc 30.9 g/dL (31.6-35.5); Mean Corpuscular Hemoglobin 26.2 pg (28.0-33.3); Mean Corpuscular Volume 84.8 fL (83.0-100.0); Mean Platelet Volume 9.7 fL (9.4-12.4); Platelet Count 297 K/mcL (140-400); Red Blood Count 3.89 M/mcL (3.82-4.97); Red Cell Distribution Width 14.1 % (11.5-14.5); White Blood Count 9.3 K/mcL (4.3-11.1)
[2020-08-06 17:10] LABS: INR 1.1; Prothrombin Time 12.2 Seconds (9.4-12.1)
[2020-08-06 17:13] LABS: Activated Partial Thrombo Time 27.9 Seconds (26.0-36.0)
[2020-08-06 17:15] LABS: BUN/Creatinine Ratio 29 (6-26); Blood Urea Nitrogen 17 mg/dL (8-23); Carbon Dioxide 28 mEq/L (23-29); Chloride 99 mEq/L (98-107); Glucose 285 mg/dL (70-105); Osmolality,Calculated 292 (280-300); Potassium 3.6 mEq/L (3.5-5.1); Sodium 135 mEq/L (136-145); eGFR For African Americans > 60 (> 60); eGFR For Non-African Americans > 60 (> 60)
[2020-08-06 17:16] LABS: Troponin I < 0.03 ng/mL (< 0.04)
[2020-08-06] MEDS ORDERED: Perflutren Lipid Microsphere 1.3 ML in 0.9 % Sodium Chloride 8.7 ML IVP PRN (20:56)
[2020-08-06] MEDS ORDERED: Melatonin 3 MG TABLET PO PRN (20:59)
[2020-08-06] MEDS ORDERED: Ondansetron 4 MG/2 ML VIAL IVP PRN (20:59)
[2020-08-06] MEDS ORDERED: Naloxone 0.4 MG/ML INJ IVP PRN (20:59)
[2020-08-06] MEDS ORDERED: Dextrose Gel 15 GM/37.5 ML TUBE PO PRN ×2 (21:22)
[2020-08-06] MEDS ORDERED: *HR* Dextrose 50 % in Water (Vial) 50 ML VIAL IVP PRN (21:22)
[2020-08-06] MEDS ORDERED: D5% in Water 1,000 ML IVC PRN (21:22)
[2020-08-06] MEDS: Insulin LISPRO 300 UNITS/3 ML VIAL SUBQ SCH (21:54)
[2020-08-06 22:20] LABS: Estimated Average Glucose 226 mg/dl; Hemoglobin A1C 9.5 %
[2020-08-07 03:56] LABS: Alanine Aminotransferase 11 Units/L (7-52); Albumin 3.3 g/dL (3.5-5.7); Albumin/Globulin Ratio 1.5 (1.1-2.2); Alkaline Phosphatase 55 Units/L (34-104); Aspartate Amino Transferase 12 Units/L (13-39); BUN/Creatinine Ratio 23 (6-26); Basophils % 0.7 %; Bilirubin,Total 0.4 mg/dL (0.3-1.0); Blood Urea Nitrogen 13 mg/dL (8-23); Calcium 8.8 mg/dL (8.6-10.3); Carbon Dioxide 28 mEq/L (23-29); Chloride 100 mEq/L (98-107); Chol/HDL Ratio 4.4 (0-4.9); Cholesterol 148 mg/dL (< 200); Eosinophils # 0.2 K/mcL (0.0-0.6); Eosinophils % 2.7 %; Globulin 2.2 g/dL (2.4-3.5); Glucose 319 mg/dL (70-105); HDL Cholesterol 34 mg/dL (40-59); Hematocrit 28.9 % (35.3-44.9); Hemoglobin 9.3 g/dL (11.5-15.4); Immature Granulocytes % 0.4 % (0-4); LDL Cholesterol,Calculated 67 mg/dL (< 100); Lymphocytes # 2.1 K/mcL (0.6-4.6); Lymphocytes % 36.9 %; Mean Corpuscular HGB Conc 32.2 g/dL (31.6-35.5); Mean Corpuscular Hemoglobin 26.6 pg (28.0-33.3); Mean Corpuscular Volume 82.8 fL (83.0-100.0); Mean Platelet Volume 9.8 fL (9.4-12.4); Monocytes # 0.6 K/mcL (0.0-1.3); Monocytes % 9.9 %; Neutrophils # 2.8 K/mcL (1.6-8.9); Osmolality,Calculated 292 (280-300); Platelet Count 258 K/mcL (140-400); Potassium 3.4 mEq/L (3.5-5.1); Red Blood Count 3.49 M/mcL (3.82-4.97); Red Cell Distribution Width 14.2 % (11.5-14.5); Segmented Neutrophils % 49.4 %; Sodium 135 mEq/L (136-145); Total Protein 5.5 g/dL (6.4-8.9); Triglycerides 233 mg/dL (< 150); White Blood Count 5.6 K/mcL (4.3-11.1); eGFR For African Americans > 60 (> 60); eGFR For Non-African Americans > 60 (> 60)
[2020-08-07] MEDS: Acetaminophen 325 MG TABLET PO PRN ×2 (06:55→17:26)
[2020-08-07] MEDS ORDERED: Perflutren Lipid Microsphere 1.3 ML in 0.9 % Sodium Chloride 8.7 ML IVP PRN (07:41)
[2020-08-07] MEDS: Insulin LISPRO 300 UNITS/3 ML VIAL SUBQ SCH ×4 (10:01→21:12)
[2020-08-07] MEDS: Lisinopril-HCTZ 20-12.5mg TABLET PO SCH (11:00)
[2020-08-07] MEDS: Cholecalciferol (D-3) 1,000 UNIT (25MCG) TABLET PO SCH (11:00)
[2020-08-07] MEDS: Aspirin Enteric Coated 81 MG Tablet PO SCH (11:00)
[2020-08-07] MEDS: Insulin DETEMIR 100 UNIT/ML X5UNITS SUBQ SCH (11:07)
[2020-08-08 06:14] LABS: Red Cell Distribution Width 14.2 % (11.5-14.5)
[2020-08-08 06:16] LABS: Basophils # 0.1 K/mcL (0.0-0.2); Basophils % 1.1 %; Eosinophils # 0.2 K/mcL (0.0-0.6); Eosinophils % 4.3 %; Hematocrit 30.5 % (35.3-44.9); Hemoglobin 9.9 g/dL (11.5-15.4); Immature Granulocytes % 0.2 % (0-4); Immature Platelets 3.6 % (1.1-6.1); Lymphocytes # 1.6 K/mcL (0.6-4.6); Lymphocytes % 34.1 %; Mean Corpuscular HGB Conc 32.5 g/dL (31.6-35.5); Mean Corpuscular Hemoglobin 26.8 pg (28.0-33.3); Mean Corpuscular Volume 82.7 fL (83.0-100.0); Mean Platelet Volume 10.4 fL (9.4-12.4); Monocytes # 0.5 K/mcL (0.0-1.3); Monocytes % 11.5 %; Neutrophils # 2.2 K/mcL (1.6-8.9); Platelet Count 240 K/mcL (140-400); Red Blood Count 3.69 M/mcL (3.82-4.97); Segmented Neutrophils % 48.8 %; White Blood Count 4.6 K/mcL (4.3-11.1)
[2020-08-08 06:42] LABS: % Iron Saturation 5 % (15-50); BUN/Creatinine Ratio 21 (6-26); Blood Urea Nitrogen 10 mg/dL (8-23); Calcium 8.7 mg/dL (8.6-10.3); Carbon Dioxide 25 mEq/L (23-29); Chloride 102 mEq/L (98-107); Glucose 282 mg/dL (70-105); Iron 23 mcg/dL (50-170); Magnesium 1.4 mg/dL (1.6-2.6); Osmolality,Calculated 291 (280-300); Phosphorous 3.4 mg/dL (2.7-4.5); Potassium 3.6 mEq/L (3.5-5.1); Sodium 136 mEq/L (136-145); Transferrin 321 mg/dL (203-362); eGFR For African Americans > 60 (> 60); eGFR For Non-African Americans > 60 (> 60)
[2020-08-08 06:51] LABS: Ferritin 11 ng/mL (10-120)
[2020-08-08 06:56] LABS: Vitamin B12 100 pg/mL (250-1100)
[2020-08-08 07:22] LABS: Folate > 22.3 ng/mL (3.0-16.0)
[2020-08-08] MEDS: Lisinopril-HCTZ 20-12.5mg TABLET PO SCH (08:53)
[2020-08-08] MEDS: Aspirin Enteric Coated 81 MG Tablet PO SCH (08:54)
[2020-08-08] MEDS: Cholecalciferol (D-3) 1,000 UNIT (25MCG) TABLET PO SCH (08:54)
[2020-08-08] MEDS: Insulin DETEMIR 100 UNIT/ML X5UNITS SUBQ SCH (08:54)
[2020-08-08] MEDS ORDERED: Iron Sucrose Complex 400 MG in 0.9 % Sodium Chloride 250 ML IVPB ONE (08:55)
[2020-08-08] MEDS: Insulin LISPRO 300 UNITS/3 ML VIAL SUBQ SCH (08:57)
[2020-08-08 10:41] VITALS: BP 131/63
== END 2020-08-08 14:15 | disposition home or self-care (01) ==
LOC: 3BNU 16:26 → EMEROOARM 16:26 → SUATTDRO 19:42 → 3BNU 20:53
PROVIDERS: ADMIT Family Medicine; ATTEND Internal Medicine